=== PATIENT | male | born 1970 | race Caucasian/White ===

== ENCOUNTER 2017-09-26 16:46 | Outpatient (CLI) | payer OTHER ==
[2017-09-26 17:11] LABS: Bilirubin Negative (Negative); Blood, Urine Large (Negative); Clarity CLEAR (Clear); Glucose, Urine (Dipstick) Negative (Negative); Leukocyte Small (Negative); Nitrite Negative (Negative); Protein, Urine (Dipstick) Trace mg/dL (Neg-Trace); Specific Gravity, Urine 1.013 (1.002-1.036); Urobilinogen 0.2 mg/dL (0.2-1.0); pH, Urine 6.5 (5.0-9.0)
[2017-09-26 17:14] LABS: Bacteria/HPF None Seen HPF (None Seen); Hyaline Casts/LPF 0-3 HYALINE CAST LPF (0-3 Hyaline); RBC/HPF GREATER THAN 50-TNTC HPF (0-3); Squamous Epithelial 0-3 HPF (0-3)
[2017-09-26 17:16] LABS: Hemoglobin 14.3 g/dL (14.0-18.0); Mean Corpuscular HGB CONC 34.6 g/dL (32.0-36.0); Mean Corpuscular Hemoglobin 30.5 pg (27.0-31.0); Mean Corpuscular Volume 88.4 fl (80.0-94.0); Mean Platelet Volume 6.8 fL (7.4-10.4); Platelet Count 189 thou/uL (130-400); RBC Distribution Width 11.5 % (11.5-14.5); Red Blood Cell (RBC) Count 4.68 mill/uL (4.70-6.10); White Blood Cell (WBC) Count 5.4 thou/uL (4.8-10.8)
[2017-09-26 17:21] LABS: PTT 30.6 SEC (22.9-36.1); Prothrombin Time 13.2 SEC (12.0-14.7)
[2017-09-26 17:33] LABS: Anion Gap 11 mmol/L (10-20); BUN (Urea Nitrogen) 15 mg/dL (8.9-20.6); Calc. Creatinine Clearance 0 mL/min (70-130); Calcium 9.3 mg/dL (7.8-10.44); Carbon Dioxide 28 mmol/L (22-29); Chloride 105 mmol/L (98-107); Estimated GFR-MDRD 90; Glucose 96 mg/dL (70-105); Potassium 3.9 mmol/L (3.5-5.1); Sodium 140 mmol/L (136-145)
--- NOTE | 2017-11-21 17:50 | EKG ---
Test Reason : Blood Pressure : / mmHG Vent. Rate : 081 BPM Atrial Rate : 081 BPM P-R Int : 154 ms QRS Dur : 096 ms QT Int : 340 ms P-R-T Axes : 052 045 032 degrees QTc Int : 394 ms Normal sinus rhythm Normal ECG No previous ECGs available Confirmed by JOANNA SORENSEN M.D. ([id number]) on 11/21/2017 5:49:55 PM Referred By: MARILU Confirmed By:JOANNA SORENSEN M.D.
== END 2017-09-26 16:47 | disposition home or self-care (01) ==
LOC: LABBT 16:46
PROVIDERS: ATTEND Urology
DX: Z01.818 Encounter for other preprocedural examination (principal); N20.2 Calculus of kidney with calculus of ureter
CPT/HCPCS: 80048; 81001; 85027; 85610; 85730; 87086; 93005; 93010

== ENCOUNTER 2017-10-02 11:17 | Day surgery (SDC) | payer OTHER ==
[2017-09-26 17:17] VITALS: BMI 25.4
[2017-10-02] MEDS ORDERED: Lidocaine 1% PF 5 ML VIAL ONE (12:55)
[2017-10-02] MEDS ORDERED: Ketorolac Tromethamine 30 MG/ML VIAL ONE (12:55)
[2017-10-02] MEDS ORDERED: ePHEDrine/0.9% NaCl/PF SYRINGE 50 mg/10 ml ONE (12:55)
[2017-10-02] MEDS ORDERED: Dexamethasone 20 MG/5 ML VIAL ONE (12:55)
[2017-10-02] MEDS ORDERED: Ondansetron HCl/PF 4 MG/2 ML Vial ONE (12:55)
[2017-10-02] MEDS ORDERED: PROPOFOL 200 MG/20 ML VIAL ONE (12:55)
[2017-10-02] MEDS ORDERED: Midazolam HCl 2 mg/2 ml Vial ONE (14:23)
[2017-10-02] MEDS ORDERED: HYDROmorphone 0.5 MG/0.5 ML SYRINGE ONE (14:26)
[2017-10-02] MEDS ORDERED: Iothalamate Meglumine 60% 50 ML VIAL FS ONE (14:50)
[2017-10-02] MEDS ORDERED: Levofloxacin 500 mg/D5W 100 ml Premix Bag ONE (14:51)
[2017-10-02] MEDS ORDERED: Phenazopyridine HCl 97.5 MG TABLET ONE (16:50)
[2017-10-02] MEDS ORDERED: Oxybutynin 5 MG TAB ONE (16:50)
--- NOTE | 2017-10-02 22:45 | OP ---
DATE OF SURGERY: 10/02/2017 SERVICE: Urology. SURGEON: Carlos Cm M.D. PREOPERATIVE DIAGNOSIS: Left renal stone. POSTOPERATIVE DIAGNOSIS: Left renal stone. PROCEDURES PERFORMED: Cystoscopy with left ureteroscopy, laser lithotripsy, basket extraction of sto ne, and replacement of a 6 x 26 double-J stent. INDICATIONS FOR PROCEDURE: Mr. Caruso is a 46-year-old white male who I initially had seen at [facility] and removal of a distal stone at that time. He had a known renal stones and has elected to have these stones removed prior to his stent removal. He still currently has the same left ureteral stent in place. Before removing the stent, he asked if we could have the additional stones removed, which is what he is being brought in for today. Risks and benefits of the surgery have been discuss ed and he has agreed to proceed forward. DESCRIPTION OF PROCEDURE: After identification of armband and verification of consent, patient was b rought back to the operating room where he underwent general anesthesia with an LMA. He was then naomi sathish in dorsal lithotomy position and prepped and draped in usual sterile fashion. After appropriate timeout, a lubricated 22-Persian rigid cystoscope was introduced per urethra into the bladder. Attent ion was turned to the left ureteral orifice, from which there was a stent emanating. Flexible graspe r was used to grasp the stent and bring it out to the level of the urethral meatus. A 0.035-sensor w brock was advanced through the ureteral stent at the level of the renal pelvis. This stent was then re moved and discarded. A dual-lumen catheter was then advanced over sensor wire to the level of the pr oximal ureter and then an Amplatz Super Stiff wire was passed through the second lumen of the stent u p to the level of the renal pelvis. The dual lumen was then removed and a 13 x 15 x 42 cm ureteral a ccess sheath was advanced over the Super Stiff wire to the level of the renal pelvis. The inner lyle jay was removed along with the Super Stiff wire leaving the outer sheath and the sensor wire in place as a safety wire. The sensor wire was affixed to the drapes with a hemostat. A flexible digital ur eteroscope was then passed through the ureteral access sheath into the kidney. Full pyeloscopy was p erformed there appeared to be two larger stones. The largest stone was in the upper pole, which requ ired laser fragmentation and basket extraction of the stones using 1.9-Persian 0-tip nitinol basket. The other stone could be basket extracted alone. There were few other smaller stones that could be b asketed and the remaining stones were Dewayne's plaques in very small calcifications that could not b e grabbed, despite multiple efforts to try and remove the very minute stones. Upon completion most o f the stones were in the 1 mm range with maybe one stone being closer to 2 mm, but all the other ston es otherwise are probably less than a mm in size. There were no additional concerning calculi. Pull back ureteroscopy was employed and no additional stones were found in the ureter. The cystoscope wa s then backloaded over the sensor wire back into the bladder. A 6 x 26 double-J stent with a string attached was advanced over the sensor wire to the level of the renal pelvis. The wire was then remov ed leaving a partial curl within the renal pelvis and good curl in the bladder. The bladder was then emptied, the cystoscope removed. The string to the stent was affixed to the patient's penis with an Op-Site. Patient was then awakened and taken out of lithotomy, awakened and taken to PACU for recov andrew in stable condition. COMPLICATIONS: None. ESTIMATED BLOOD LOSS: Minimal. RETAINED TUBES AND DRAINS: A 6 x 26 double-J stent on the left. SPECIMENS: Stone for stone analysis. DISPOSITION: Patient will be discharged to home and follow up with me in approximately 2-3 weeks for a postop check.
== END 2017-10-02 18:37 | disposition home or self-care (01) ==
LOC: SDC 11:17
PROVIDERS: ATTEND Urology
PROC: 0TC48ZZ Extirpation of Matter from Left Kidney Pelvis, Via Natural or Artificial Opening Endoscopic (ICD-10-PCS; principal; 2017-10-02)
PROC: 0TP98DZ Removal of Intraluminal Device from Ureter, Via Natural or Artificial Opening Endoscopic (ICD-10-PCS; principal; 2017-10-02)
PROC: 0T778DZ Dilation of Left Ureter with Intraluminal Device, Via Natural or Artificial Opening Endoscopic (ICD-10-PCS; principal; 2017-10-02)
DX: N20.0 Calculus of kidney (principal); Z88.5 Allergy status to narcotic agent; Z79.899 Other long term (current) drug therapy
CPT/HCPCS: 76000; 82365; 88300; C1769; J1100; J1170; J1885; J1956; J2001; J2250; J2405; J2704; Q9961

== ENCOUNTER 2017-11-30 11:55 | Outpatient (CLI) | payer OTHER | END 2017-11-30 11:56 | disposition home or self-care (01) | LOC: BICULT 11:55 | PROVIDERS: ATTEND Urology | DX: N20.0 Calculus of kidney (principal) | CPT/HCPCS: 76770 ==

== ENCOUNTER 2017-12-26 08:50 | Outpatient (CLI) | payer OTHER | END 2017-12-26 08:51 | disposition home or self-care (01) | LOC: CTENTCT 08:50 | PROVIDERS: ATTEND Specialist | DX: J01.81 Other acute recurrent sinusitis (principal) | CPT/HCPCS: 70486 ==